=== PATIENT | male | born 1965 | race Caucasian/White ===

== ENCOUNTER 2017-04-15 06:08 | Emergency (ER) | payer OTHER ==
[~2017-04-15] VITALS: Ht 177.8 cm; Wt 84.1 kg
[2017-04-15 06:22] VITALS: RESP 16; TEMP 98.1; O2SAT 97
[2017-04-15 06:29] VITALS: BP 174/113; PULSE 92; RESP 16
[2017-04-15 07:16] LABS: AUTOMATED NEUTROPHIL # 5.1 TH/MM3 (1.8-7.7); BASOPHIL # 0.1 TH/MM3 (0-0.2); BASOPHIL % 1.1 % (0.0-2.0); EOSINOPHIL # 0.5 TH/MM3 (0-0.4); EOSINOPHIL % 5.7 % (0.0-4.0); HEMATOCRIT 51.6 % (39.0-51.0); LYMPH % 22.7 % (9.0-44.0); LYMPHOCYTE # 1.9 TH/MM3 (1.0-4.8); MEAN CELL VOLUME 91.6 FL (80.0-100.0); MEAN CORPUSCULAR HEMOGLOBIN 31.9 PG (27.0-34.0); MEAN CORPUSCULAR HGB CONC 34.8 % (32.0-36.0); MEAN PLATELET VOLUME 9.2 FL (7.0-11.0); MONO % 8.5 % (0.0-8.0); MONOCYTE # 0.7 TH/MM3 (0-0.9); PLATELET COUNT 278 TH/MM3 (150-450); RED BLOOD COUNT 5.63 MIL/MM3 (4.50-5.90); RED CELL DISTRIBUTION WIDTH 13.2 % (11.6-17.2); WHITE BLOOD COUNT 8.2 TH/MM3 (4.0-11.0)
--- NOTE | 2017-04-15 07:19 | PD ---
HPI Chief Complaint: Psychiatric Symptoms Time Seen by Provider: 07:14 Travel History International Travel<30 days: No Contact w/Intl Traveler<30days: No Traveled to known affect area: No History of Present Illness HPI 51-year-old male brought into the emergency department under the Smith act for psychiatric symptoms. Patient reportedly called the [facility] stating that "people were banging on his dorsum looking in his windows., As well as people in the torres behind his residence shining flashlights.". The patient advised the [facility]'s department that he set up trip lines 2 attempt to catch the people. The patient's girlfriend was contacted and she stated there was never any one at the residence trying to break in. Patient has history of hallucinations in the past. The patient was then Smith acted. Patient has no known drug allergies. PFSH Past Medical History Medical History: Denies Significant Hx Influenza Vaccination: No Past Surgical History Other Surgery: Yes (left arm ) Social History Alcohol Use: No (occ) Tobacco Use: No Substance Use: No Allergies-Medications (Allergen,Severity, Reaction): Coded Allergies: No Known Allergies (Unverified , 04/15/17) Reported Meds & Prescriptions Reported Meds & Active Scripts Active No Active Prescriptions or Reported Medications Review of Systems ROS Limitations: Psychotic Except as stated in HPI: all other systems reviewed are Neg General / Constitutional: No: Fever Eyes: No: Visual changes HENT: No: Headaches Cardiovascular: No: Chest Pain or Discomfort Respiratory: No: Shortness of Breath Gastrointestinal: No: Abdominal Pain Genitourinary: No: Dysuria Musculoskeletal: No: Pain Skin: No Rash Neurologic: No: Weakness Psychiatric: Positive: Disorder of Thought, No: Anxiety, Depression, Suicidal Ideations, Homicidal Ideation Endocrine: No: Polydipsia Hematologic/Lymphatic: No: Easy Bruising Physical Exam Exam Limitations: Psychotic Narrative GENERAL: Patient has pressured speech, but no obvious medical issues. SKIN: Warm and dry. Normal color. Normal turgor. HEAD: Atraumatic. Normocephalic. EYES: Pupils equal and round. No scleral icterus. No injection or drainage. ENT: No nasal bleeding or discharge. Mucous membranes pink and moist. Pharynx is clear. NECK: Trachea midline. Supple. CARDIOVASCULAR: Regular rate and rhythm. RESPIRATORY: No accessory muscle use. Clear to auscultation. Breath sounds equal bilaterally. MUSCULOSKELETAL: Extremities without clubbing, cyanosis, or edema. No obvious deformities. NEUROLOGICAL: Awake and alert. No obvious cranial nerve deficits. Motor grossly within normal limits. Five out of 5 muscle strength in the arms and legs. Normal speech. PSYCHIATRIC: Appropriate mood and affect; insight and judgment normal. Data Data Last Documented VS Vital Signs Date Time Temp Pulse Resp B/P (MAP) Pulse Ox O2 Delivery O2 Flow Rate FiO2 04/15/17 12:33 65 18 117/81 (93) 96 Room Air 04/15/17 08:37 97.5 Orders Orders Complete Blood Count With Diff (04/15/17 06:31) Comprehensive Metabolic Panel (04/15/17 06:31) Psych Screen (04/15/17 06:31) Drug Screen, Random Urine (04/15/17 06:31) Alcohol (Ethanol) (04/15/17 06:31) Salicylates (Aspirin) (04/15/17 06:31) Diet Regular Basic (04/15/17 Lunch) Diet Regular Basic (04/15/17 Dinner) Labs Laboratory Tests Test 04/15/17 06:10 04/15/17 06:50 White Blood Count 8.2 TH/MM3 Red Blood Count 5.63 MIL/MM3 Hemoglobin 18.0 GM/DL Hematocrit 51.6 % Mean Corpuscular Volume 91.6 FL Mean Corpuscular Hemoglobin 31.9 PG Mean Corpuscular Hemoglobin Concent 34.8 % Red Cell Distribution Width 13.2 % Platelet Count 278 TH/MM3 Mean Platelet Volume 9.2 FL Neutrophils (%) (Auto) 62.0 % Lymphocytes (%) (Auto) 22.7 % Monocytes (%) (Auto) 8.5 % Eosinophils (%) (Auto) 5.7 % Basophils (%) (Auto) 1.1 % Neutrophils # (Auto) 5.1 TH/MM3 Lymphocytes # (Auto) 1.9 TH/MM3 Monocytes # (Auto) 0.7 TH/MM3 Eosinophils # (Auto) 0.5 TH/MM3 Basophils # (Auto) 0.1 TH/MM3 CBC Comment DIFF FINAL Differential Comment Blood Urea Nitrogen 18 MG/DL Creatinine 1.15 MG/DL Random Glucose 85 MG/DL Total Protein 7.8 GM/DL Albumin 4.2 GM/DL Calcium Level 8.9 MG/DL Alkaline Phosphatase 48 U/L Aspartate Amino Transf (AST/SGOT) 29 U/L Alanine Aminotransferase (ALT/SGPT) 43 U/L Total Bilirubin 0.9 MG/DL Sodium Level 140 MEQ/L Potassium Level 3.5 MEQ/L Chloride Level 106 MEQ/L Carbon Dioxide Level 26.0 MEQ/L Anion Gap 8 MEQ/L Estimat Glomerular Filtration Rate 68 ML/MIN Salicylates Level LESS THAN 1.7 MG/DL Ethyl Alcohol Level LESS THAN 3 MG/DL MDM Medical Decision Making Medical Screen Exam Complete: Yes Emergency Medical Condition: Yes Medical Record Reviewed: Yes Differential Diagnosis Psychosis. Hallucinations. Need for psychiatric treatment. Narrative Course Patient appears medically stable at time of exam. Psychiatric labs ordered per protocol. Patient is medically clear for psychiatric evaluation. Scripts No Active Prescriptions or Reported Meds Condition: Stable Jarett Irvin Apr 15, 2017 07:19
[2017-04-15 07:43] LABS: ALBUMIN 4.2 GM/DL (3.4-5.0); ALT (GPT) 43 U/L (12-78); AST (GOT) 29 U/L (15-37); BLOOD UREA NITROGEN 18 MG/DL (7-18); CALCIUM 8.9 MG/DL (8.5-10.1); CHLORIDE 106 MEQ/L (98-107); CREATININE 1.15 MG/DL (0.60-1.30); GLOMERULAR FILTRATION RATE 68 ML/MIN (>89); GLUCOSE,RANDOM 85 MG/DL (74-106); SODIUM (NA) 140 MEQ/L (136-145)
[2017-04-15 07:45] LABS: ALKALINE PHOSPHATASE 48 U/L (45-117); TOTAL BILIRUBIN ADULT 0.9 MG/DL (0.2-1.0); TOTAL PROTEIN 7.8 GM/DL (6.4-8.2)
[2017-04-15 08:37] VITALS: BP 158/112; PULSE 75; RESP 18; TEMP 97.5; O2SAT 99
[2017-04-15 12:33] VITALS: BP 117/81; PULSE 65; RESP 18; O2SAT 96
--- NOTE | 2017-04-15 17:58 | PD ---
Physical Exam Date Seen by Provider: Apr 15, 2017 Time Seen by Provider: 17:56 Narrative 51-year-old male previously medically cleared for psychiatric evaluation. Seen by psychiatric staff and felt to be psychiatrically stable for discharge. Patient remains medically stable at time of discharge. Patient is to follow-up as per psychiatric note. Data Data Last Documented VS Vital Signs Date Time Temp Pulse Resp B/P (MAP) Pulse Ox O2 Delivery O2 Flow Rate FiO2 04/15/17 12:33 65 18 117/81 (93) 96 Room Air 04/15/17 08:37 97.5 Orders Orders Complete Blood Count With Diff (04/15/17 06:31) Comprehensive Metabolic Panel (04/15/17 06:31) Psych Screen (04/15/17 06:31) Drug Screen, Random Urine (04/15/17 06:31) Alcohol (Ethanol) (04/15/17 06:31) Salicylates (Aspirin) (04/15/17 06:31) Diet Regular Basic (04/15/17 Lunch) Diet Regular Basic (04/15/17 Dinner) Labs Laboratory Tests Test 04/15/17 06:10 04/15/17 06:50 White Blood Count 8.2 TH/MM3 Red Blood Count 5.63 MIL/MM3 Hemoglobin 18.0 GM/DL Hematocrit 51.6 % Mean Corpuscular Volume 91.6 FL Mean Corpuscular Hemoglobin 31.9 PG Mean Corpuscular Hemoglobin Concent 34.8 % Red Cell Distribution Width 13.2 % Platelet Count 278 TH/MM3 Mean Platelet Volume 9.2 FL Neutrophils (%) (Auto) 62.0 % Lymphocytes (%) (Auto) 22.7 % Monocytes (%) (Auto) 8.5 % Eosinophils (%) (Auto) 5.7 % Basophils (%) (Auto) 1.1 % Neutrophils # (Auto) 5.1 TH/MM3 Lymphocytes # (Auto) 1.9 TH/MM3 Monocytes # (Auto) 0.7 TH/MM3 Eosinophils # (Auto) 0.5 TH/MM3 Basophils # (Auto) 0.1 TH/MM3 CBC Comment DIFF FINAL Differential Comment Blood Urea Nitrogen 18 MG/DL Creatinine 1.15 MG/DL Random Glucose 85 MG/DL Total Protein 7.8 GM/DL Albumin 4.2 GM/DL Calcium Level 8.9 MG/DL Alkaline Phosphatase 48 U/L Aspartate Amino Transf (AST/SGOT) 29 U/L Alanine Aminotransferase (ALT/SGPT) 43 U/L Total Bilirubin 0.9 MG/DL Sodium Level 140 MEQ/L Potassium Level 3.5 MEQ/L Chloride Level 106 MEQ/L Carbon Dioxide Level 26.0 MEQ/L Anion Gap 8 MEQ/L Estimat Glomerular Filtration Rate 68 ML/MIN Salicylates Level LESS THAN 1.7 MG/DL Ethyl Alcohol Level LESS THAN 3 MG/DL MDM Medical Record Reviewed: Yes Supervised Visit with RAO: Yes Narrative Course 51-year-old male previously medically cleared for psychiatric evaluation. Seen by psychiatric staff and felt to be psychiatrically stable for discharge. Patient remains medically stable at time of discharge. Patient is to follow-up as per psychiatric note. Scripts No Active Prescriptions or Reported Meds Disposition: 01 DISCHARGE HOME Condition: Stable Jarett Irvin Apr 15, 2017 17:57
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
== END 2017-04-15 18:42 | disposition home or self-care (01) ==
LOC: NEPD 06:08 → NEPJ 18:42
DX: F23 Brief psychotic disorder (principal)
CPT/HCPCS: 80053; 80307; 85025; 99284